=== PATIENT | male | born 2005 | race Caucasian/White ===

== ENCOUNTER 2025-06-06 05:38 | Emergency (ER) | payer SELFPAY | END 2025-06-06 07:30 | disposition home or self-care (01) | LOC: ERS 05:38 | DX: Z04.1 Encounter for examination and observation following transport accident (principal); F10.129 Alcohol abuse with intoxication, unspecified; V89.0XXA Person injured in unspecified motor-vehicle accident, nontraffic, initial encounter | CPT/HCPCS: 70450; 72125 ==